=== PATIENT | male | born 1945 | race Caucasian/White ===

== ENCOUNTER 2019-05-01 10:19 | Day surgery (SDC) | payer MEDICARE ==
[2019-04-29 13:09] VITALS: BMI 29.4
[2019-05-01] MEDS: LACTATED RINGERS 1,000 ML IV SCH ×2 (10:35→10:51)
[2019-05-01 10:38] VITALS: TEMP 96.8
[2019-05-01] MEDS ORDERED: LIDOCAINE 1% 20 ML VIAL (10MG/ML) FOR IV START SQ ONE (10:51)
[2019-05-01] MEDS ORDERED: ePHEDrine SULFATE/0.9% NACL/PF 50 MG/5 ML SYRINGE IV ONE (11:24)
[2019-05-01] MEDS ORDERED: LIDOCAINE 1% INJ 10MG/ML (20 ML MDV) ONE (11:24)
[2019-05-01] MEDS ORDERED: PROPOFOL 10 MG/ML 20 ML VIAL IV ONE (11:24)
--- NOTE | 2019-05-01 12:09 | P.PCN ---
Date of Procedure: 05/01/19 Procedure(s) Performed: Brief history: Patient is a pleasant 73-year-old white male, scheduled for an elective upper endoscopy as well as colonoscopy as a part of evaluation of epigastric pain for the last 2 months duration. He recently had a CT of the abdomen and pelvis done as a part of a value should've epigastric pain and was noted to have thickening of the sigmoid colon suspicious for neoplasm and hence patient is An upper endoscopy as well as colonoscopy to evaluate further. Procedure performed: Esophagogastroduodenoscopy with biopsy Colonoscopy Preoperative diagnosis: Epigastric pain Abnormal CAT scan the abdomen showing thickening of the sigmoid colon/rule out neoplasm Anesthesia: MAC Procedure: After informed consent was obtained from the patient was brought into the endoscopy unit and IV sedation was administered by anesthesia under continuous monitoring. Initially upper endoscopy was done. The Olympus GF 160 video endoscope was inserted inserted into the mouth and esophagus intubated without any difficulty and was gradually advanced into the stomach and duodenum and carefully examined. The bulb and second part of the duodenum appeared normal. The scope was then withdrawn into the stomach adequately insufflated with air and upon careful examination the antrum had scattered erosions and mild gastritis and biopsies were done from this area. The body, cardia and fundus appeared normal. The scope was then withdrawn into the esophagus. small sliding-type hiatal hernia noted. The GE junction was located at 40 cm to the incisors. It appeared regular with no erythema erosions or ulcerations. Rest of the esophagus appeared normal. Patient tolerated the procedure well. At this time the patient continued to remain sedation. Initial digital rectal examination was normal. Olympus CF 160 video colonoscope was then inserted into the rectum and gradually advanced to the cecum without any difficulty. Careful examination was performed as the scope was gradually being withdrawn. The prep was excellent. The cecum, ascending colon, transverse colon, descending colon, sigmoid colon and rectum appeared normal. Scattered sigmoidal diverticula seen. Retroflexion was performed in the rectum and no lesions were noted. Patient tolerated the procedure well. Impression: 1. Upper endoscopy revealed mild antral gastritis and a small sliding Hiatal hernia 2. Colonoscopy revealed scattered sigmoidal diverticulosis but no evidence of colitis or colorectal neoplasia Recommendations: Findings of this examination were discussed with the patient as well as his family. He was advised to continue with Prevacid 20 mg daily and follow antireflux measures. He'll be a high-fiber diet and he can have a repeat screening colonoscopy in 10 years
[2019-05-01 12:33] VITALS: BP 116/71; PULSE 55; RESP 18
== END 2019-05-01 13:01 | disposition home or self-care (01) ==
LOC: ORWHC2ENDO 10:19
PROVIDERS: ATTEND Internal Medicine Gastroenterology
DX: K29.50 Unspecified chronic gastritis without bleeding (principal); K44.9 Diaphragmatic hernia without obstruction or gangrene; K57.90 Diverticulosis of intestine, part unspecified, without perforation or abscess without bleeding; I10 Essential (primary) hypertension; E78.5 Hyperlipidemia, unspecified; K21.9 Gastro-esophageal reflux disease without esophagitis; Z79.899 Other long term (current) drug therapy
CPT/HCPCS: 88305; 45378; 43239; J2001; J2704